=== PATIENT | female | born 1985 | race Caucasian/White ===

== ENCOUNTER 2018-05-22 08:56 | Emergency (ER) | payer OTHER ==
[~2018-05-22] VITALS: Ht 172.7 cm; Wt 72.6 kg
[~2018-05-22 08:56] MED LIST: COL100 PO; LEXAPRO10 MG PO; NOR10T PO
[2018-05-22 09:06] VITALS: Ht 172.7 cm; Wt 72.6 kg
[2018-05-22 10:56] VITALS: BP 115/76
== END 2018-05-22 10:57 | disposition home or self-care (01) ==
LOC: ED 08:56
DX: M54.40 Lumbago with sciatica, unspecified side (principal); Z90.49 Acquired absence of other specified parts of digestive tract
CPT/HCPCS: J1885

== ENCOUNTER 2018-12-17 11:17 | Emergency (ER) | payer SELFPAY ==
[~2018-12-17] VITALS: Ht 172.7 cm; Wt 69.9 kg
[2018-12-17 11:43] VITALS: BP 126/80; Ht 172.7 cm; Wt 69.9 kg
[2018-12-18 04:11] LABS: RAPID PLASMA REAGIN Non Reactive (Non Reactive)
== END 2018-12-17 12:59 | disposition home or self-care (01) ==
LOC: ED 11:17
PROVIDERS: Emergency Medicine
DX: A60.04 Herpesviral vulvovaginitis (principal); D68.0 Von Willebrand disease; Z90.49 Acquired absence of other specified parts of digestive tract; Z98.890 Other specified postprocedural states
CPT/HCPCS: 87491; 87591; J0696; J1885